=== PATIENT | male | born 1995 | race Asian ===

== ENCOUNTER 2019-03-17 15:24 | Emergency (ER) | payer BC, OTHER ==
[2019-03-17 15:32] VITALS: PULSE 64; BMI 28.7
[2019-03-17 15:45] VITALS: BP 112/74; TEMP 97.6
--- NOTE | 2019-03-17 16:54 | PDOC ---
Documentation entered by Darlene Jamil SCRIBE, acting as scribe for Shan James MD. Shan James MD: This documentation has been prepared by the Loulou adams Adrianna, SCRIBE, under my direction and personally reviewed by me in its entirety. I confirm that the documentation accurately reflects all work, treatment, procedures, and medical decision making performed by me. History of Present Illness - General Chief Complaint: Pain, Acute Stated Complaint: RIGHT ANKLE PAIN Time Seen by Provider: 03/17/19 15:35 - History of Present Illness Initial Comments: The patient is a 23 year old male, with a history of multiple ankle sprains, who presents to the ED for evaluation of ankle pain since yesterday. Patient notes he was playing basketball yesterday, when his misstepped and twisted his right ankle. He complains of right ankle pain and swelling, most prominent at the lateral aspect of the ankle. Denies any numbness or tingling. Patient notes he has had multiple ankle sprains in the past, but notes this has been the most painful with the most swelling. He presents to the ED to ensure that he did not fracture anything. Allergies: NKA, NKDA Surgical History: None reported Social History: Denies EtOH, tobacco, or illicit drug use Past History - Past Medical History Allergies/Adverse Reactions: Allergies Allergy/AdvReac Type Severity Reaction Status Date / Time No Known Allergies Allergy Verified 03/17/19 15:25 Home Medications: Ambulatory Orders Diclofenac Sodium 50 mg PO QID PRN #20 tablet. 03/17/19 COPD: No Other medical history: DENIES - Psycho Social/Smoking Cessation Hx Smoking History: Never smoked Hx Alcohol Use: No Drug/Substance Use Hx: No Review of Systems - Review of Systems Comments:: GENERAL/CONSTITUTIONAL: No fever or chills. No weakness. HEAD, EYES, EARS, NOSE AND THROAT: No change in vision. No ear pain or discharge. No sore throat. CARDIOVASCULAR: No chest pain or shortness of breath. RESPIRATORY: No cough, wheezing, or hemoptysis. GASTROINTESTINAL: No nausea, vomiting, diarrhea or constipation. GENITOURINARY: No dysuria, frequency, or change in urination. MUSCULOSKELETAL: +Right ankle pain and swelling. No neck or back pain. SKIN: No rash NEUROLOGIC: No headache, vertigo, loss of consciousness, or change in strength/ sensation. ENDOCRINE: No increased thirst. No abnormal weight change. HEMATOLOGIC/LYMPHATIC: No anemia, easy bleeding, or history of blood clots. ALLERGIC/IMMUNOLOGIC: No hives or skin allergy. *Physical Exam - Vital Signs Last Vital Signs Temp Pulse Resp BP Pulse Ox 97.6 F 64 15 112/74 99 03/17/19 15:25 03/17/19 15:25 03/17/19 15:25 03/17/19 15:25 03/17/19 15:25 - Physical Exam Comments: GENERAL: Awake, alert, and fully oriented, in no acute distress HEAD: No signs of trauma EYES: PERRLA, EOMI, sclera anicteric, conjunctiva clear ENT: Auricles normal inspection, hearing grossly normal, nares patent, oropharynx clear without exudates. Moist mucosa NECK: Normal ROM, supple, no lymphadenopathy, JVD, or masses LUNGS: Breath sounds equal, clear to auscultation bilaterally. No wheezes, and no crackles HEART: Regular rate and rhythm, normal S1 and S2, no murmurs, rubs or gallops ABDOMEN: Soft, nontender, normoactive bowel sounds. No guarding, no rebound. No masses EXTREMITIES: +Moderate to severe swelling of the lateral ankle over the anterior and lateral ligaments. No deformity, no instability. Pulses full, no distal motor or sensory deficits. No clubbing or cyanosis. NEUROLOGICAL: Cranial nerves II through XII grossly intact. Normal speech, normal gait SKIN: Warm, Dry, normal turgor, no rashes or lesions noted. ED Treatment Course - RADIOLOGY Radiology Studies Ordered: Category Date Time Status ANKLE-RIGHT [RAD] Stat Radiology 03/17/19 15:32 Taken Radiograph Interpretation: X-Ray of the right ankle negative for fracture. Medical Decision Making - Medical Decision Making 03/17/19 17:11 Patient twisted his ankle playing basketball last night, persistent pain and swelling laterally. Multiple sprains due to basketball injuries in the past, both ankles No distal numbness, tingling, or pain in the forefoot or toes. Ambulating with pain Exam with moderate swelling over the anterior and lateral ankle ligaments. Mild tenderness over the lateral malleolus. No fifth metatarsal tenderness. Pulses full. No distal sensory or motor deficits X-ray negative for fracture. Soft tissue swelling. Ankle stirrup splint applied. Limited ambulation encouraged. At other times, rest ice elevation and Motrin or Aleve. Follow-up Dr. Cosby in 1 week. Adequately ambulatory and in no severe pain or other distress at discharge with family to follow-up as directed. Discharge - Discharge Information Problems reviewed: Yes Clinical Impression/Diagnosis: Ankle sprain Qualifiers: Encounter type: initial encounter Involved ligament of ankle: tibiofibular ligament Laterality: right Qualified Code(s): S93.431A - Sprain of tibiofibular ligament of right ankle, initial encounter Condition: Improved Disposition: HOME - Admission No - Additional Discharge Information Prescriptions: Diclofenac Sodium 50 mg PO QID PRN #[address] tablet[address] HARRIS Reason: Pain - Follow up/Referral Referrals: Casey Cosby MD [Staff Physician] - 1 week - Patient Discharge Instructions Patient Printed Discharge Instructions: DI for Ankle Sprain Additional Instructions: When at home, rest elevate apply ice. Motrin or Aleve will help the pain and swelling Wear the ankle support and try to do a limited amount of standing and walking to keep your leg muscles toned. However, no prolonged walking or standing and no sports until improved Consult senior analysis specialist if the pain or swelling persist and there is no improvement in 7 to 10 days. - Post Discharge Activity
== END 2019-03-17 16:24 | disposition home or self-care (01) ==
LOC: FER 15:24
PROC: 2W3QX1Z Immobilization of Right Lower Leg using Splint (ICD-10-PCS; principal; 2019-03-17)
DX: S93.431A Sprain of tibiofibular ligament of right ankle, initial encounter (principal); X58.XXXA Exposure to other specified factors, initial encounter; Y93.67 Activity, basketball; Y92.310 Basketball court as the place of occurrence of the external cause
CPT/HCPCS: 73610-TC-RT-FY; 99282-25